=== PATIENT | female | born 1970 | race Caucasian/White ===

== ENCOUNTER 2017-05-12 16:29 | Inpatient (IN) | payer OTHER ==
[~2017-05-12] VITALS: Ht 188 cm; Wt 106.8 kg
[2017-05-12 17:20] LABS: HEMATOCRIT 33.7 % (36.0-46.0); HEMOGLOBIN 11.3 G/DL (11.9-15.5); MCH 30.1 PG (29.0-34.0); MCHC 33.5 G/DL (30.0-36.0); MCV 89.9 FL (83-99); PLATELET COUNT 349 K/uL (156-360); RBC DIS.WIDTH-CV 13.2 % (11.8-14.6); RBC DIS.WIDTH-SD 43.8 % (39-53); RED BLOOD COUNT 3.75 M/uL (3.80-5.20); WHITE BLOOD COUNT 18.1 K/uL (4.1-10.2)
[2017-05-12 17:28] LABS: CHLORIDE 108 mEq/L (99-109); POTASSIUM 5.4 mEq/L (3.7-5.4); SODIUM 138 mEq/L (136-147)
[2017-05-12 17:29] LABS: GLUCOSE 128 mg/dL (70-99)
[2017-05-12 17:33] LABS: CREATININE 0.8 mg/dL (0.6-1.3); GFR ESTIMATE (CALCULATED) > 59 mL/min/
[2017-05-12 17:34] LABS: UREA NITROGEN (BUN) 46 mg/dL (9-23)
[2017-05-12 20:04] LABS: HEMATOCRIT 27.7 % (36.0-46.0); HEMOGLOBIN 9.2 G/DL (11.9-15.5); MCH 30.1 PG (29.0-34.0); MCHC 33.2 G/DL (30.0-36.0); MCV 90.5 FL (83-99); NRBC (%) 0.1 /100 WBC (0-0); PLATELET COUNT 309 K/uL (156-360); RBC DIS.WIDTH-CV 13.2 % (11.8-14.6); RBC DIS.WIDTH-SD 43.5 % (39-53); RED BLOOD COUNT 3.06 M/uL (3.80-5.20); WHITE BLOOD COUNT 14.4 K/uL (4.1-10.2)
[2017-05-12] MEDS ORDERED: PROPRANOLOL HCL20 MG PO (20:06)
[2017-05-12 20:50] LABS: INTER. NORMALIZED RATIO 1.1
[2017-05-12 20:53] LABS: PTT 24.8 SEC (25-37)
[2017-05-12 21:37] VITALS: BP 98/77
[2017-05-12 22:04] VITALS: BP 100/65
[2017-05-12 22:14] VITALS: BP 110/64
[2017-05-12 22:22] LABS: HEMOGLOBIN 9.3 G/DL (11.9-15.5); MCH 30.4 PG (29.0-34.0); MCHC 34.4 G/DL (30.0-36.0); MCV 88.2 FL (83-99); NRBC (%) 0.4 /100 WBC (0-0); PLATELET COUNT 250 K/uL (156-360); RBC DIS.WIDTH-CV 13.4 % (11.8-14.6); RBC DIS.WIDTH-SD 43.5 % (39-53); RED BLOOD COUNT 3.06 M/uL (3.80-5.20); WHITE BLOOD COUNT 13.6 K/uL (4.1-10.2)
[2017-05-13] VITALS (25 sets, daily range): BP systolic 86–119; BP diastolic 45–94
[2017-05-13 00:57] LABS: HEMATOCRIT 29.1 % (36.0-46.0); HEMOGLOBIN 9.9 G/DL (11.9-15.5)
[2017-05-13 06:28] LABS: INTER. NORMALIZED RATIO 1.1
[2017-05-13 06:31] LABS: BASOPHIL (%) 0.5 % (0-1); BASOPHIL COUNT 0.1 K/uL (0-0.1); EOSINOPHIL (%) 0.3 % (0-5); HEMATOCRIT 27.6 % (36.0-46.0); HEMOGLOBIN 9.2 G/DL (11.9-15.5); IMMATURE GRANULOCYTE (%) 0.9 % (0.0-0.7); LYMPHOCYTE COUNT 4.9 K/uL (1.0-2.8); MCH 29.6 PG (29.0-34.0); MCHC 33.3 G/DL (30.0-36.0); MCV 88.7 FL (83-99); MONOCYTE (%) 5.8 % (3-12); MONOCYTE COUNT 0.7 K/uL (0-0.8); NEUTROPHIL (%) 53.5 % (45-76); NEUTROPHIL COUNT 6.8 K/uL (1.8-6.4); PLATELET COUNT 262 K/uL (156-360); RBC DIS.WIDTH-SD 45.5 % (39-53); RED BLOOD COUNT 3.11 M/uL (3.80-5.20); WHITE BLOOD COUNT 12.7 K/uL (4.1-10.2)
[2017-05-13 06:35] LABS: CHLORIDE 110 MEQ/L (99-109); CREATININE 0.8 MG/DL (0.6-1.3); GFR ESTIMATE (CALCULATED) > 59 mL/min/; GLUCOSE 150 mg/dL (70-99); POTASSIUM 4.3 MEQ/L (3.7-5.4); SODIUM 139 MEQ/L (136-147); UREA NITROGEN (BUN) 38 mg/dL (9-23)
[2017-05-13 12:37] LABS: HEMATOCRIT 25.3 % (36.0-46.0); HEMOGLOBIN 8.4 G/DL (11.9-15.5); MCV 88.5 FL (83-99)
[2017-05-13 18:22] LABS: HEMATOCRIT 25.2 % (36.0-46.0); HEMOGLOBIN 8.3 G/DL (11.9-15.5)
[2017-05-14] VITALS (26 sets, daily range): BP systolic 95–172; BP diastolic 52–85
[2017-05-14 05:59] LABS: BASOPHIL (%) 0.3 % (0-1); EOSINOPHIL (%) 0.7 % (0-5); EOSINOPHIL COUNT 0.1 K/uL (0-0.3); HEMATOCRIT 20.6 % (36.0-46.0); HEMOGLOBIN 6.7 G/DL (11.9-15.5); IMMATURE GRANULOCYTE (%) 0.6 % (0.0-0.7); LYMPHOCYTE (%) 33.3 % (15-42); LYMPHOCYTE COUNT 3.1 K/uL (1.0-2.8); MCH 29.4 PG (29.0-34.0); MCHC 32.5 G/DL (30.0-36.0); MCV 90.4 FL (83-99); MONOCYTE (%) 5.6 % (3-12); MONOCYTE COUNT 0.5 K/uL (0-0.8); NEUTROPHIL (%) 59.5 % (45-76); NEUTROPHIL COUNT 5.6 K/uL (1.8-6.4); PLATELET COUNT 215 K/uL (156-360); RBC DIS.WIDTH-CV 14.4 % (11.8-14.6); RBC DIS.WIDTH-SD 47.3 % (39-53); RED BLOOD COUNT 2.28 M/uL (3.80-5.20); WHITE BLOOD COUNT 9.4 K/uL (4.1-10.2)
[2017-05-14 06:18] LABS: ALBUMIN 2.6 G/DL (3.2-4.8); ALKALINE PHOSPHATASE 37 IU/L (3-129); ALT (GPT) 14 IU/L (3-49); AST (GOT) 12 IU/L (2-34); CHLORIDE 111 MEQ/L (99-109); CREATININE 0.7 MG/DL (0.6-1.3); GFR ESTIMATE (CALCULATED) > 59 mL/min/; GLUCOSE 121 mg/dL (70-99); MAGNESIUM 1.7 mg/dl (1.3-2.7); PHOSPHORUS 2.4 mg/dL (2.5-4.9); POTASSIUM 3.8 MEQ/L (3.7-5.4); SODIUM 141 MEQ/L (136-147); TOTAL BILIRUBIN 0.4 MG/DL (0.0-1.0); TOTAL PROTEIN 4.4 G/DL (6.4-8.3); UREA NITROGEN (BUN) 15 mg/dL (9-23)
[2017-05-14 11:11] LABS: HEMATOCRIT 23.7 % (36.0-46.0); HEMOGLOBIN 7.8 G/DL (11.9-15.5); MCV 89.8 FL (83-99)
[2017-05-14 17:56] LABS: BASOPHIL (%) 0.4 % (0-1); EOSINOPHIL (%) 0.8 % (0-5); EOSINOPHIL COUNT 0.1 K/uL (0-0.3); HEMATOCRIT 27.6 % (36.0-46.0); HEMOGLOBIN 8.7 G/DL (11.9-15.5); IMMATURE GRANULOCYTE (%) 0.7 % (0.0-0.7); LYMPHOCYTE (%) 33.6 % (15-42); MCH 28.3 PG (29.0-34.0); MCHC 31.5 G/DL (30.0-36.0); MCV 89.9 FL (83-99); MONOCYTE (%) 5.5 % (3-12); MONOCYTE COUNT 0.5 K/uL (0-0.8); NEUTROPHIL COUNT 5.3 K/uL (1.8-6.4); PLATELET COUNT 215 K/uL (156-360); RBC DIS.WIDTH-CV 14.5 % (11.8-14.6); RBC DIS.WIDTH-SD 46.5 % (39-53)
[2017-05-14 18:03] LABS: RED BLOOD COUNT 3.07 M/uL (3.80-5.20)
[2017-05-15 00:01] VITALS: BP 116/59
[2017-05-15 03:50] VITALS: BP 108/61
[2017-05-15 06:09] LABS: HEMATOCRIT 25.1 % (36.0-46.0); HEMOGLOBIN 8.5 G/DL (11.9-15.5); MCH 30.4 PG (29.0-34.0); MCHC 33.9 G/DL (30.0-36.0); MCV 89.6 FL (83-99); PLATELET COUNT 197 K/uL (156-360); RBC DIS.WIDTH-CV 14.5 % (11.8-14.6); WHITE BLOOD COUNT 7.8 K/uL (4.1-10.2)
[2017-05-15 06:42] LABS: CHLORIDE 110 MEQ/L (99-109); CREATININE 0.6 MG/DL (0.6-1.3); GFR ESTIMATE (CALCULATED) > 59 mL/min/; GLUCOSE 99 mg/dL (70-99); POTASSIUM 3.6 MEQ/L (3.7-5.4); SODIUM 141 MEQ/L (136-147); UREA NITROGEN (BUN) 6 mg/dL (9-23)
[2017-05-15 07:00] VITALS: BP 112/34
[2017-05-15 11:35] VITALS: BP 120/86
[2017-05-15 16:34] VITALS: BP 106/60
[2017-05-15 20:33] VITALS: BP 125/70
[2017-05-16 00:04] VITALS: BP 130/64
[2017-05-16 06:51] LABS: HEMATOCRIT 26.3 % (36.0-46.0); HEMOGLOBIN 8.5 G/DL (11.9-15.5); MCHC 32.3 G/DL (30.0-36.0); MCV 89.8 FL (83-99); PLATELET COUNT 233 K/uL (156-360); RBC DIS.WIDTH-CV 14.5 % (11.8-14.6); RBC DIS.WIDTH-SD 45.7 % (39-53); RED BLOOD COUNT 2.93 M/uL (3.80-5.20); WHITE BLOOD COUNT 7.4 K/uL (4.1-10.2)
[2017-05-16 07:18] LABS: CHLORIDE 109 MEQ/L (99-109); CREATININE 0.6 MG/DL (0.6-1.3); GFR ESTIMATE (CALCULATED) > 59 mL/min/; GLUCOSE 100 mg/dL (70-99); POTASSIUM 3.8 MEQ/L (3.7-5.4); SODIUM 141 MEQ/L (136-147); UREA NITROGEN (BUN) 6 mg/dL (9-23)
[2017-05-16 07:56] VITALS: BP 118/79
[2017-05-16] MEDS ORDERED: PROTONIX40 MG PO (11:58)
[2017-05-16] MEDS ORDERED: FERROUS SULFAT325 MG PO (11:58)
== END 2017-05-16 13:08 | disposition home or self-care (01) | DRG 377 ==
LOC: EME 16:29 → EDOF 22:22 → 4WEST 22:22 → ENRESERV 22:23 → 4WEST 05-13 01:21 → ENRESERV 05-14 14:12 → 2EAST 05-14 16:25
PROVIDERS: Emergency Medicine; Hospitalist; Internal Medicine Critical Care Medicine; Physician Assistant; Specialist
DX: K31.82 Dieulafoy lesion (hemorrhagic) of stomach and duodenum (principal); R57.8 Other shock; K92.0 Hematemesis; D62 Acute posthemorrhagic anemia; K92.1 Melena; E87.6 Hypokalemia; I10 Essential (primary) hypertension; K21.9 Gastro-esophageal reflux disease without esophagitis; K26.9 Duodenal ulcer, unspecified as acute or chronic, without hemorrhage or perforation; E66.9 Obesity, unspecified; K25.9 Gastric ulcer, unspecified as acute or chronic, without hemorrhage or perforation; Z87.891 Personal history of nicotine dependence; Z68.30 Body mass index [BMI] 30.0-30.9, adult
CPT/HCPCS: 71045; 80048; 80053; 83735; 84100; 85014; 85018; 85025; 85025 91; 85027; 85610; 85730; 86850; 86900; 86901; 86920; 87641; 93005; 99281; 99285; C9113; J0330; J2250; J2354; J2405; J2765; J3475; J7030; J7050; J7120; P9016; S0028

== ENCOUNTER 2017-10-09 22:32 | Emergency (ER) | payer OTHER ==
[~2017-10-09] VITALS: Ht 167.6 cm; Wt 107.7 kg
[~2017-10-09 22:32] MED LIST: FERROUS SULFAT325 MG PO; PROPRANOLOL HCL20 MG PO; PROTONIX40 MG PO
[2017-10-09 23:22] LABS: BASOPHIL (%) 0.3 % (0-1); EOSINOPHIL (%) 0.9 % (0-5); EOSINOPHIL COUNT 0.1 K/uL (0-0.3); HEMATOCRIT 40.1 % (36.0-46.0); HEMOGLOBIN 13.7 G/DL (11.9-15.5); IMMATURE GRANULOCYTE (%) 0.3 % (0.0-0.7); LYMPHOCYTE (%) 39.8 % (15-42); LYMPHOCYTE COUNT 3.6 K/uL (1.0-2.8); MCH 29.4 PG (29.0-34.0); MCHC 34.2 G/DL (30.0-36.0); MCV 86.1 FL (83-99); MONOCYTE (%) 6.3 % (3-12); MONOCYTE COUNT 0.6 K/uL (0-0.8); NEUTROPHIL (%) 52.4 % (45-76); NEUTROPHIL COUNT 4.8 K/uL (1.8-6.4); PLATELET COUNT 286 K/uL (156-360); RBC DIS.WIDTH-CV 13.9 % (11.8-14.6); RBC DIS.WIDTH-SD 43.6 % (39-53); RED BLOOD COUNT 4.66 M/uL (3.80-5.20); WHITE BLOOD COUNT 9.1 K/uL (4.1-10.2)
[2017-10-09 23:31] LABS: CHLORIDE 107 mEq/L (99-109); POTASSIUM 3.7 mEq/L (3.7-5.4)
[2017-10-09 23:32] LABS: SODIUM 139 mEq/L (136-147)
[2017-10-09 23:34] LABS: GLUCOSE 128 mg/dL (70-99); TOTAL PROTEIN 7.2 g/dL (6.4-8.3)
[2017-10-09 23:36] LABS: TOTAL BILIRUBIN 0.3 mg/dL (0.0-1.0)
[2017-10-09 23:37] LABS: ALKALINE PHOSPHATASE 79 IU/L (3-129)
[2017-10-09 23:38] LABS: CREATININE 0.8 mg/dL (0.6-1.3); GFR ESTIMATE (CALCULATED) > 59 mL/min/
[2017-10-09 23:39] LABS: AST (GOT) 15 IU/L (2-34); UREA NITROGEN (BUN) 16 mg/dL (9-23)
[2017-10-09 23:40] LABS: ALT (GPT) 18 IU/L (3-49)
[2017-10-10 00:09] LABS: APPEARANCE CLEAR ((CLEAR)); BILIRUBIN NEGATIVE; BLOOD NEGATIVE; COLOR YELLOW ((YELLOW)); GLUCOSE (STRIP) NEGATIVE; KETONES 5; LEUKOCYTES SMALL; NITRITE NEGATIVE; PROTEIN (STRIP) NEGATIVE; SPECIFIC GRAVITY 1.034 (1.000-1.030)
[2017-10-10] MEDS ORDERED: BENTYL20 MG PO (00:13)
[2017-10-10 00:20] LABS: BACTERIA RARE /HPF; EPITHELIAL CELLS 1+ /HPF; MUCUS 1+ /LPF; RED BLOOD CELLS 0-5 /HPF (0-5); UCUL ADDED? YES
[2017-10-10 00:50] VITALS: BP 143/93
== END 2017-10-10 00:50 | disposition home or self-care (01) ==
LOC: EME 22:32
PROVIDERS: Physician Assistant
DX: R10.12 Left upper quadrant pain (principal); I10 Essential (primary) hypertension; Z87.19 Personal history of other diseases of the digestive system; Z87.891 Personal history of nicotine dependence; Z90.49 Acquired absence of other specified parts of digestive tract
CPT/HCPCS: 80053; 81003; 85025; 87086; 99281; 99284